=== PATIENT | male | born 1960 | race Hispanic/Latino ===

== ENCOUNTER 2020-08-17 11:13 | Inpatient (IN) | payer BC, OTHER ==
[2020-08-17] MEDS ORDERED: Fentanyl 100 MCG/2 ML VIAL ONE (11:25)
[2020-08-17] MEDS ORDERED: Lidocaine 1% w/Epinephrine 1:100K 20 ML VIAL ONE (12:42)
[2020-08-17 13:26] LABS: #Monocytes 0.4 10x3/uL (0.0-1.1); #Neutrophils 6.8 10x3/uL (1.5-8.4); %Basophils 0.5 % (0.0-2.0); %Eosinophils 0.1 % (0.0-6.0); %Lymphocytes 7.5 % (18.0-47.0); %Monocytes 5.1 % (0.0-10.0); %Neutrophils 86.4 % (40.0-75.0); Hemoglobin 14.5 g/dL (13.5-17.5); Mean Corpuscular HGB CONC 33.7 g/dL (32.0-36.0); Mean Corpuscular Hemoglobin 32.6 pg (27.0-33.0); Mean Corpuscular Volume 96.6 fl (81.2-95.1); Mean Platelet Volume 9.8 fl (7.4-10.4); Platelet Count 207 10x3/uL (150-450); RBC Distribution Width 12.4 % (11.5-14.5); Red Blood Cell (RBC) Count 4.45 10x6/uL (4.32-5.72); White Blood Cell (WBC) Count 7.9 10x3/uL (3.5-10.5)
[2020-08-17] MEDS ORDERED: Bacitracin 1 PK ONE (13:27)
[2020-08-17 13:48] LABS: ALT (SGPT) 30 U/L (8-55); AST (SGOT) 28 U/L (5-34); Albumin 4.2 g/dL (3.5-5.0); Alkaline Phosphatase 55 U/L (40-110); Anion Gap 12 mmol/L (10-20); BUN (Urea Nitrogen) 15 mg/dL (8.4-25.7); Bilirubin, Total 1.2 mg/dL (0.2-1.2); Calc. Creatinine Clearance 0 mL/min (70-130); Calcium 8.6 mg/dL (7.8-10.44); Carbon Dioxide 29 mmol/L (22-29); Chloride 104 mmol/L (98-107); Globulin 2.5 g/dL (2.4-3.5); Glucose 104 mg/dL (70-105); Potassium 4.2 mmol/L (3.5-5.1); Protein, Total 6.7 g/dL (6.0-8.3); Sodium 141 mmol/L (136-145)
[2020-08-17] MEDS ORDERED: Ondansetron PF 4 MG/2 ML Vial SLOW IVP PRN (17:25)
[2020-08-17] MEDS ORDERED: Fentanyl 100 MCG/2 ML VIAL SLOW IVP PRN (17:25)
[2020-08-17] MEDS ORDERED: TETANUS AND DIPHTHERIA TOX/PF 0.5 ML DISP.SYRIN IM SCH (17:30)
[2020-08-17] MEDS ORDERED: Communication Order-Pharmacy FS PRN (17:30)
[2020-08-17] MEDS ORDERED: CEFAZOLIN 2 GM in Premix Bag 1 BAG IVPB SCH (17:45)
[2020-08-17 17:59] VITALS: BMI 24.7
[2020-08-17] MEDS: Ketorolac Tromethamine 30 MG/ML VIAL IVP SCH (19:36)
[2020-08-17] MEDS: HYDROcodone/Acetaminophen 10/325 mg Tablet PO PRN (19:38)
[2020-08-17] MEDS: Morphine 2 MG/ML VIAL SLOW IVP PRN (20:54)
[2020-08-18] MEDS: Ketorolac Tromethamine 30 MG/ML VIAL IVP SCH ×4 (00:46→18:02)
[2020-08-18] MEDS: Sodium Chloride 0.9% 100 ML IV SCH ×14 (00:49→23:58)
[2020-08-18 05:36] LABS: SARS-CoV-2 PCR by NAA Not Detected (NotDetected)
[2020-08-18] MEDS ORDERED: Bupivacaine PF 0.5% 30 ML VIAL ONE ×2 (11:46)
[2020-08-18] MEDS ORDERED: Neomycin-Polymyxin 1 ML AMP ONE ×2 (11:47→12:50)
[2020-08-18] MEDS ORDERED: EPINEPHrine 1 MG/ML AMP ONE (11:47)
[2020-08-18] MEDS ORDERED: Lidocaine 1% PF 5 ML VIAL ONE (12:28)
[2020-08-18] MEDS ORDERED: Ropivacaine 0.5% HCl/PF (150 MG/30 ML VIAL) ONE (12:28)
[2020-08-18] MEDS ORDERED: PROPOFOL 60 ML ONE (12:46)
[2020-08-18] MEDS ORDERED: Lidocaine 1% (PF) 30 ML VIAL ONE (12:48)
[2020-08-18] MEDS ORDERED: PROPOFOL 20 ML ONE (13:22)
[2020-08-18] MEDS ORDERED: PROPOFOL 40 ML ONE (13:22)
[2020-08-18] MEDS ORDERED: Communication Order-Pharmacy FS SCH (14:30)
[2020-08-18] MEDS ORDERED: TETANUS AND DIPHTHERIA TOX/PF 0.5 ML DISP.SYRIN IM SCH (14:30)
[2020-08-18] MEDS: CEFAZOLIN 2 GM in Premix Bag 1 BAG IVPB SCH (22:40)
[2020-08-18] MEDS: Aspirin 81 mg Enteric Coated Tablet PO SCH (22:41)
[2020-08-19] MEDS: HYDROcodone/Acetaminophen 10/325 mg Tablet PO PRN ×5 (04:39→21:37)
[2020-08-19] MEDS: Morphine 4 MG/ML VIAL SLOW IVP PRN ×2 (05:33→10:00)
[2020-08-19] MEDS: CEFAZOLIN 2 GM in Premix Bag 1 BAG IVPB SCH ×3 (06:01→21:40)
[2020-08-19] MEDS: Sodium Chloride 0.9% 100 ML IV SCH ×12 (06:03→20:04)
[2020-08-19] MEDS: Aspirin 81 mg Enteric Coated Tablet PO SCH ×2 (08:15→21:40)
[2020-08-19] MEDS: Morphine 2 MG/ML VIAL SLOW IVP PRN (15:04)
[2020-08-20] MEDS: Sodium Chloride 0.9% 1,000 ML IV SCH ×3 (00:28→20:45)
[2020-08-20] MEDS: HYDROcodone/Acetaminophen 10/325 mg Tablet PO PRN ×4 (02:13→18:30)
[2020-08-20] MEDS: CEFAZOLIN 2 GM in Premix Bag 1 BAG IVPB SCH ×2 (05:14→14:45)
[2020-08-20] MEDS: Aspirin 81 mg Enteric Coated Tablet PO SCH (09:27)
[2020-08-20 21:42] VITALS: BP 124/70; TEMP 98.1
== END 2020-08-20 21:42 | disposition home or self-care (01) | DRG 511 ==
LOC: CSHERS 11:13 → CSHTELE 17:06
PROVIDERS: ADMIT Orthopaedic Surgery; ATTEND Orthopaedic Surgery
PROC: 0HQ1XZZ Repair Face Skin, External Approach (ICD-10-PCS; 2020-08-17)
PROC: 0PSH04Z Reposition Right Radius with Internal Fixation Device, Open Approach (ICD-10-PCS; principal; 2020-08-18)
PROC: 0PSK0ZZ Reposition Right Ulna, Open Approach (ICD-10-PCS; 2020-08-18)
DX: S52.511A Displaced fracture of right radial styloid process, initial encounter for closed fracture (principal); S82.142A Displaced bicondylar fracture of left tibia, initial encounter for closed fracture; Z20.822 Contact with and (suspected) exposure to COVID-19; S01.81XA Laceration without foreign body of other part of head, initial encounter; S52.611A Displaced fracture of right ulna styloid process, initial encounter for closed fracture; V29.9XXA Motorcycle rider (driver) (passenger) injured in unspecified traffic accident, initial encounter; S52.122A Displaced fracture of head of left radius, initial encounter for closed fracture; Z90.89 Acquired absence of other organs; Z98.49 Cataract extraction status, unspecified eye
CPT/HCPCS: 12011; 36415; 71045; 76000; 80053; 85025; 87635; 94760; 96374; 96375; C1713; G0390; J0171; J0690; J1885; J2001; J2270; J2704; J2795; J3010; J7050; S0020; U0003; U0005